=== PATIENT | female | born 1990 | race Two or more races ===

== ENCOUNTER 2018-02-15 19:04 | Emergency (ER) | payer OTHER ==
[~2018-02-15] VITALS: Ht 154.9 cm; Wt 54.4 kg
--- NOTE | 2018-02-15 19:18 | NUR ---
TO ROOM 5 FOR ER EVAL.ERMD AT BEDSIDE
== END 2018-02-15 19:31 | disposition home or self-care (01) ==
LOC: ER 19:04
DX: N61.0 Mastitis without abscess (principal)
CPT/HCPCS: A4663